=== PATIENT | male | born 1990 | race Caucasian/White ===

== ENCOUNTER → 2017-08-26 | Emergency (ER) | payer OTHER | END | disposition home or self-care (01) | LOC: E/R 18:16 | DX: R05 Cough (principal); J45.909 Unspecified asthma, uncomplicated; Z87.891 Personal history of nicotine dependence | CPT/HCPCS: 99284; Z7502 ==

== ENCOUNTER 2018-05-16 20:49 | Emergency (ER) | payer OTHER | END 2018-05-16 23:35 | disposition home or self-care (01) | LOC: FTE 20:49 | DX: B07.9 Viral wart, unspecified (principal); F17.210 Nicotine dependence, cigarettes, uncomplicated; J45.909 Unspecified asthma, uncomplicated | CPT/HCPCS: 99283; Z7502 ==

== ENCOUNTER 2019-05-09 23:03 | Emergency (ER) | payer OTHER | END 2019-05-10 02:25 | disposition home or self-care (01) | LOC: FTE 23:03 | DX: F41.9 Anxiety disorder, unspecified (principal); J45.909 Unspecified asthma, uncomplicated; F17.210 Nicotine dependence, cigarettes, uncomplicated; R42 Dizziness and giddiness | CPT/HCPCS: 82962; 93005; 99283-25 ==